=== PATIENT | female | born 1955 ===

== ENCOUNTER 2018-06-20 11:57 | Emergency (ER) | payer SELFPAY ==
[2018-06-20 12:46] LABS: #Basophils 0.1 thou/uL (0.0-0.2); #Eosinphils 0.2 thou/uL (0.0-0.7); #Lymphocytes 2.3 thou/uL (1.20-3.40); #Monocytes 0.9 thou/uL (0.11-0.59); #Neutrophils 3.9 thou/uL (1.40-6.50); %Basophils 1.8 % (0.0-1.0); %Eosinophils 2.3 % (0.0-10.0); %Lymphocytes 30.7 % (21.0-51.0); %Monocytes 12.3 % (0.0-10.0); Mean Corpuscular HGB CONC 34.1 g/dL (32.0-36.0); Mean Corpuscular Hemoglobin 32.2 pg (27.0-31.0); Mean Corpuscular Volume 94.3 fL (78.0-98.0); Mean Platelet Volume 6.7 fL (7.4-10.4); Platelet Count 316 thou/uL (130-400); RBC Distribution Width 11.9 % (11.5-14.5); Red Blood Cell (RBC) Count 4.04 mill/uL (4.20-5.40); White Blood Cell (WBC) Count 7.3 thou/uL (4.8-10.8)
[2018-06-20 13:16] LABS: ALT (SGPT) 25 U/L (8-55); AST (SGOT) 27 U/L (5-34); Albumin 4.9 g/dL (3.4-4.8); Alkaline Phosphatase 42 U/L (40-150); Anion Gap 16 mmol/L (10-20); BUN (Urea Nitrogen) 9 mg/dL (9.8-20.1); Bilirubin, Total 0.4 mg/dL (0.2-1.2); CK (CPK) 161 U/L (29-168); Calc. Creatinine Clearance 0 mL/min (70-130); Calcium 10.4 mg/dL (7.8-10.44); Carbon Dioxide 25 mmol/L (23-31); Chloride 91 mmol/L (98-107); Estimated GFR-MDRD 73; Globulin 3.2 g/dL (2.4-3.5); Glucose 104 mg/dL (80-115); Potassium 4.2 mmol/L (3.5-5.1); Protein, Total 8.1 g/dL (6.0-8.3); Sodium 128 mmol/L (136-145)
--- NOTE | 2018-06-20 13:48 | CT ---
CT BRAIN WITHOUT CONTRAST: Date: 06/20/18 HISTORY: Hypertension and dizziness. COMPARISON: None. 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 No acute hemorrhage or inf arct. No midline shift or mass effect. Ventricular size and extra-axial CSF spaces are normal. Calvar ium is intact. Paranasal sinuses and mastoids are clear. Globes are intact. IMPRESSION: No acute intracranial abnormality. POS: [facility]
[2018-06-20] MEDS ORDERED: Aspirin Chewable 81 MG TAB ONE (13:57)
--- NOTE | 2018-06-20 14:15 | RAD ---
SINGLE VIEW CHEST: Date; 06/20/18 COMPARISON: None. HISTORY: Hypertension and dizziness. FINDINGS: Single view of the chest shows a normal sized cardiomediastinal silhouette. There is no evidence of c onsolidation, mass, or pleural effusion. The bones are unremarkable. IMPRESSION: No evidence of acute cardiopulmonary disease. POS: [facility]
== END 2018-06-20 14:11 | disposition home or self-care (01) ==
LOC: ERS 11:57
DX: I10 Essential (primary) hypertension (principal); E11.9 Type 2 diabetes mellitus without complications; E78.5 Hyperlipidemia, unspecified; F32.9 Major depressive disorder, single episode, unspecified; Z79.899 Other long term (current) drug therapy; Z79.84 Long term (current) use of oral hypoglycemic drugs
CPT/HCPCS: 70450; 71045; 80053; 82550; 83880; 84443; 84484; 85025; 93005